=== PATIENT | female | born 1985 | race Caucasian/White ===

== ENCOUNTER 2024-11-08 14:06 | Emergency (ER) | payer OTHER ==
[~2024-11-08] VITALS: Ht 157.5 cm; Wt 96.8 kg
[2024-11-08 16:44] LABS: BASO # 0.0 10^3/uL (0.0-0.2); BASO % 0.5 % (0.0-1.0); EOS # 0.2 10^3/uL (0.0-0.5); EOS % 2.0 % (0.0-3.0); LYMPH # 2.8 10^3/uL (1.5-5.0); LYMPH % 36.8 % (24.0-44.0); MONO # 0.5 10^3/uL (0.0-0.8); MONO % 5.9 % (2.0-8.0); NEUTROPHILS # 4.1 10^3/uL (1.5-8.5); NEUTROPHILS % 54.5 % (36.0-66.0); PLATELET COUNT, AUTOMATED 297 10^3/uL (150-450)
[2024-11-08 17:12] LABS: CALCIUM LEVEL 9.4 MG/DL (8.5-10.1); CARBON DIOXIDE LEVEL 27 MMOL/L (20-31); CHLORIDE LEVEL 106 MMOL/L (98-107); CREATININE FOR GFR 0.63 MG/DL (0.55-1.30); GLOMERULAR FILTRATION RATE > 90.0 (>60); MAGNESIUM LEVEL 2.2 MG/DL (1.8-2.4); POTASSIUM SERUM 4.5 MMOL/L (3.5-5.1); SODIUM LEVEL 140 MMOL/L (136-145)
[2024-11-08 17:46] LABS: HCG, SERUM QUALITATIVE NEGATIVE (NEGATIVE)
[2024-11-08 18:09] VITALS: BP 118/71; TEMP 96.4; O2SAT 99
== END 2024-11-08 18:55 | disposition home or self-care (01) ==
LOC: M ED 14:06
DX: R55 Syncope and collapse (principal); R00.1 Bradycardia, unspecified